=== PATIENT | male | born 1955 | race Hispanic/Latino ===

== ENCOUNTER 2017-04-25 10:41 | Inpatient (IN) | payer BC ==
[~2017-04-25] VITALS: Ht 172.7 cm; Wt 84.9 kg
[~2017-04-25 10:41] MED LIST: AMLODIPINE BESYL5 MG PO; ATORVASTATIN PO; LISINOPRIL5 MG PO; METOPROLOL SUCC25 MG PO; OMEPRAZOLE40 MG PO; PRINIVIL20 MG PO; RANITIDINE HCL150 MG PO; SUCRALFATE1 GM PO
[2017-04-25] MEDS ORDERED: CLONIDINE HCL 0.1 MG TAB PO ONE (11:30)
[2017-04-25] MEDS ORDERED: DIATRIZOATE MEGL/DIATRIZOA SOD 30 ML BTL PO ONE (11:39)
[2017-04-25 11:52] LABS: BASOPHILS # (AUTO) 0.1 (0.0-0.1); BASOPHILS % 1.3 % (0.0-1.0); BILIRUBIN,URINE NEGATIVE (NEGATIVE); CLARITY,URINE CLEAR (CLEAR); COLOR,URINE YELLOW (YELLOW); EOSINOPHILS # (AUTO) 0.2 (0.0-0.4); EOSINOPHILS % 2.6 % (0.0-6.0); HEMATOCRIT 46.4 % (38.2-49.6); HEMOGLOBIN 15.8 g/dL (14.0-18.0); KETONES,URINE NEGATIVE (NEGATIVE); LEUKOCYTE ESTERASE ,URINE TRACE (NEGATIVE); LYMPHOCYTES # (AUTO) 1.2 (1.0-3.2); LYMPHOCYTES % 19.8 % (18.0-39.1); MEAN CORPUSCULAR HEMOGLOBIN 29.1 pg (28-32); MEAN CORPUSCULAR HGB CONC 34.1 g/dL (31-35); MEAN CORPUSCULAR VOLUME 85.5 fL (81-99); MONOCYTES # (AUTO) 0.7 (0.2-0.8); MONOCYTES % 10.6 % (4.4-11.3); NEUTROPHILS # (AUTO) 4.1 (2.1-6.9); NEUTROPHILS % 65.4 % (38.7-80.0); NITRITE,URINE NEGATIVE (NEGATIVE); PLATELET COUNT 260 x10e3/uL (140-360); PROTEIN,URINE DIPSTICK NEGATIVE (NEGATIVE); RED BLOOD COUNT 5.43 x10e6/uL (4.3-5.7); RED CELL DISTRIBUTION WIDTH 13.7 % (11.7-14.4); URINE UROBILINOGEN 0.2 mg/dL (0.2 - 1)
[2017-04-25 12:02] LABS: INR 1.11; PROTHROMBIN TIME 13.5 seconds (11.9-14.5)
[2017-04-25 12:03] LABS: PARTIAL THROMBOPLASTIN TIME 35.4 seconds (23.8-35.5)
[2017-04-25 12:05] LABS: ALANINE AMINOTRANSFERASE 12 IU/L (0-55); ALBUMIN 3.6 g/dL (3.5-5.0); ALBUMIN/GLOBULIN RATIO 0.9 (0.8-2.0); ALKALINE PHOSPHATASE 68 IU/L (40-150); AMYLASE 67 U/L (25-125); ANION GAP 11.7 mmol/L (8-16); BLOOD UREA NITROGEN 14 mg/dL (7-26); BUN/CREATININE RATIO 16 (6-25); CALCIUM 9.3 mg/dL (8.4-10.2); CARBON DIOXIDE 25 mmol/L (22-29); CHLORIDE 99 mmol/L (98-107); CREATININE, SERUM 0.89 mg/dL (0.72-1.25); EST GLOMERULAR FILTRATION RATE > 60 ML/MIN (60-); GLUCOSE 109 mg/dL (74-118); LIPASE 35 U/L (8-78); MAGNESIUM 1.8 MG/DL (1.3-2.1); POTASSIUM 3.7 mmol/L (3.5-5.1); SODIUM 132 mmol/L (136-145)
[2017-04-25 12:07] LABS: BACTERIA,URINE RARE /HPF; EPITHELIAL CELLS,URINE RARE /LPF; RBC,URINE 0-5 /HPF (0-5); WBC,URINE (MAN) 0-5 /HPF (0-5)
--- NOTE | 2017-04-25 13:31 | Diagnostic Imaging Report ---
PROCEDURE: CT ABDOMEN AND PELVIS WITH CONTRAST TECHNIQUE: The abdomen and pelvis were scanned utilizing a multidetector helical scanner from the diaphragm to the lesser trochanter after the IV administration of 100 cc of Isovue 370 and the oral administration of Gastroview and water. Coronal and sagittal multiplanar reformations were obtained. COMPARISON: None. INDICATIONS: LOWER ABDOMINAL PAIN FINDINGS: LOWER THORAX: Normal. HEPATOBILIARY: No focal hepatic lesions. No biliary ductal dilatation. SPLEEN: No splenomegaly. PANCREAS: No focal masses or ductal dilatation. ADRENALS: No adrenal nodules. KIDNEYS/URETERS: No hydronephrosis, stones, or solid mass lesions. PELVIC ORGANS/BLADDER: Unremarkable. PERITONEUM / RETROPERITONEUM: Dense bulky lymphadenopathy is present in the retroperitoneum of the mid abdomen. The largest lymph node is present lateral to the head of the pancreas and posterior to the duodenum, measuring 5.9 x 5.7 cm on series 2 image 25. The lymphadenopathy is present in the distributions of the celiac and superior mesenteric arteries, along the infrarenal abdominal aorta, and bilateral common iliac arteries. No free air or fluid. LYMPH NODES: No lymphadenopathy. VESSELS: Atherosclerotic calcifications. GI TRACT: Normal appendix. No distention or wall thickening. Moderate amount of retained feces limits intraluminal evaluation of the colon. BONES AND SOFT TISSUES: Degenerative changes of the lumbar spine. IMPRESSION: Midabdominal bulky retroperitoneal lymphadenopathy is concerning for lymphoma. Dictated by: Jesus Fuller M.D. on 04/25/2017 at 13:32 Electronically approved by: Jesus Fuller M.D. on 04/25/2017 at 13:32
[2017-04-25] MEDS ORDERED: LABETALOL HCL 5 MG/ML 20ML VIAL IV PRN (14:30)
[2017-04-25] MEDS ORDERED: SODIUM CHLORIDE FLUSH 10 ML SYR INJ PRN (14:30)
--- OUTSIDE RECORDS SUMMARY | 2017-04-25 14:37 | XMS REPORT ---
Author Author [facility] Address Unknown Phone Unavailable Care Team Providers Care Senior Dentist Name Role Phone DADA WATERS Unavailable Unavailable Problems This patient has no known problems. Allergies, Adverse Reactions, Alerts This patient has no known allergies or adverse reactions. Medications This patient has no known medications. Results Test Description Test Time Test Comments Text Results Atomic Results Result Comments CT ABDOMEN/PELVIS W [place] [address] Patient Name: TESFAYE CARVAJAL MR #: [id number] : 1955 Age/Sex: 61/M Req #: [id number] Adm Physician: Ordered by: NIECY GONZALEZ GRAIN BLENDER Report #: [id number] Location: ER Room/Bed: Procedure: [id number] CT/CT ABDOMEN/PELVIS W Exam Date: 04/25/17 Exam Time: 1225 REPORT STATUS: Signed PROCEDURE: CT ABDOMEN AND PELVIS WITH CONTRAST TECHNIQUE: The abdomen and pelvis were scanned utilizing a multidetector helical scanner from the diaphragm to the lesser trochanter after the IV administration of 100 cc of Isovue 370 and the oral administration of Gastroview and water. Coronal and sagittal multiplanar reformations were obtained. COMPARISON: None. INDICATIONS : LOWER ABDOMINAL PAIN FINDINGS: LOWER THORAX: Normal. HEPATOBILIARY: No focal hepatic lesions. No biliary ductal dilatation. SPLEEN : No splenomegaly. PANCREAS: No focal masses or ductal dilatation. ADRENALS: No adrenal nodules. KIDNEYS/URETERS: No hydronephrosis, stones, or solid mass lesions. PELVIC ORGANS/BLADDER: Unremarkable. PERITONEUM / RETROPERITONEUM: Dense bulky lymphadenopathy is present in the retroperitoneum of the mid abdomen. The largest lymph node is present lateral to the head of the pancreas and posterior to the duodenum, measuring 5.9 x 5.7 cm on series 2 image 25. The lymphadenopathy is present in the distributions of the celiac and superior mesenteric arteries, along the infrarenal abdominal aorta, and bilateral common iliac arteries. No free air or fluid. LYMPH NODES: No lymphadenopathy. VESSELS: Atherosclerotic calcifications. GI TRACT: Normal appendix. No distention or wall thickening. Moderate amount of retained feces limits intraluminal evaluation of the colon. BONES AND SOFT TISSUES: Degenerative changes of the lumbar spine. IMPRESSION: Midabdominal bulky retroperitoneal lymphadenopathy is concerning for lymphoma. Dictated by: Shannan Quinones M.D. on 2017 at 13:32 Electronically approved by: Shannan Quinones M.D. on 2017 at 13:32 Dictated By: SHANNAN QUINONES MD [id number] Transcribed By: ARDHA on 04/25/17 1332 COPY TO: NIECY GONZALEZ NP
[2017-04-25] MEDS ORDERED: SODIUM CHLORIDE 0.9% 50ML 50 ML ONE (15:17)
[2017-04-25] MEDS ORDERED: IOPAMIDOL 370 MG/ML 200 ML INFUS..BTL INJ ONE (15:18)
[2017-04-25] MEDS ORDERED: DOCUSATE SODIUM LIQD 100 MG/10 ML UDC NG SCH (17:00)
[2017-04-25] MEDS ORDERED: ACETAMINOPHEN 325 MG TAB PO PRN (17:45)
[2017-04-25] MEDS ORDERED: HYDRALAZINE HCL 20 MG/ML VIAL IV ONE (17:45)
[2017-04-25] MEDS: MORPHINE SULFATE 2 MG/ML SYR IV PRN (17:58)
[2017-04-25 18:36] VITALS: BP 213/118
--- NOTE | 2017-04-25 18:58 | History and Physical ---
HISTORY OF PRESENT ILLNESS: He is a 61-year-old male with past medical history mainly positive for hypertension. Came here with severe abdominal pain and rectal bleeding. Blood pressure was extremely high. Patient is admitted to the hospital. REVIEW OF SYSTEMS: CARDIOVASCULAR: No chest pain or palpitation. RESPIRATORY: No shortness of breath. No cough. GASTROINTESTINAL: He has nausea. No vomiting. He does have abdominal pain. He was passing bright red blood a few days ago. No melena. GENITOURINARY: No frequency, no dysuria. ALLERGIES: HE IS NOT ALLERGIC TO ANY MEDICATIONS. SOCIAL HISTORY: He smokes. He does not drink alcohol. PAST MEDICAL HISTORY: Mainly positive for hypertension. PHYSICAL EXAMINATION: HEART: Shows regular rhythm. No murmur and no extra sounds. LUNGS: Clear bilaterally. ABDOMEN: Soft. Minimal tenderness on the periumbilical area. No distention, no visceromegaly. EXTREMITIES: Show no evidence of cyanosis, edema or trauma. NECK: No lymphadenopathy and no goiter. AXILLARY EXAMINATION: Showed no evidence of any lymphadenopathy. FINAL IMPRESSION: 1. Hypertensive emergency. 2. Abdominal tumor, rule out lymphoma. 3. Rectal bleeding. 4. Nausea. 5. Constipation. PLAN OF TREATMENT: We are going to get an oncology consult with Dr. Cabezas because of the abdominal mass. We are going to consult Dr. Ward Carter, gastroenterology, for rectal bleeding. We are going to put him back on lisinopril and Norvasc. We are going to use labetalol 20 mg IV push as needed for blood pressure more than 150/80. Going to give Tylenol 650 mg q.4 h. as needed for pain or fever. Morphine 4 mg IV q.4 h. as needed. Zofran 4 mg IV q.4 h. as needed. Continue Colace 100 mg twice a day. Lactulose 20 g q.4 h. as needed for constipation. Job#: [id number]
[2017-04-25 19:05] VITALS: BP 213/118
[2017-04-25] MEDS ORDERED: LACTULOSE SYRUP 20 GM/30 ML UDC PO PRN (19:45)
[2017-04-25 20:10] VITALS: BP 155/78
[2017-04-25 23:44] VITALS: BP 155/97
[2017-04-26] VITALS (7 sets, daily range): BP systolic 133–181; BP diastolic 70–98
[2017-04-26] MEDS: MORPHINE SULFATE 2 MG/ML SYR IV PRN ×4 (00:53→21:41)
[2017-04-26] MEDS: NICOTINE 14 MG/EA PATCH TOP SCH ×2 (02:54→09:52)
[2017-04-26 07:29] LABS: BASOPHILS # (AUTO) 0.1 (0.0-0.1); EOSINOPHILS # (AUTO) 0.3 (0.0-0.4); EOSINOPHILS % 3.4 % (0.0-6.0); HEMATOCRIT 44.9 % (38.2-49.6); HEMOGLOBIN 14.9 g/dL (14.0-18.0); LYMPHOCYTES # (AUTO) 1.7 (1.0-3.2); MEAN CORPUSCULAR HEMOGLOBIN 28.4 pg (28-32); MEAN CORPUSCULAR HGB CONC 33.2 g/dL (31-35); MEAN CORPUSCULAR VOLUME 85.5 fL (81-99); MONOCYTES % 10.8 % (4.4-11.3); NEUTROPHILS # (AUTO) 5.8 (2.1-6.9); NEUTROPHILS % 65.5 % (38.7-80.0); PLATELET COUNT 225 x10e3/uL (140-360); RED BLOOD COUNT 5.25 x10e6/uL (4.3-5.7); RED CELL DISTRIBUTION WIDTH 13.6 % (11.7-14.4)
[2017-04-26] MEDS: ONDANSETRON HCL INJ 2 MG/ML VIAL IV PRN ×2 (07:50→17:53)
[2017-04-26 07:56] LABS: ANION GAP 12.8 mmol/L (8-16); BLOOD UREA NITROGEN 12 mg/dL (7-26); BUN/CREATININE RATIO 13 (6-25); CARBON DIOXIDE 27 mmol/L (22-29); CHLORIDE 99 mmol/L (98-107); EST GLOMERULAR FILTRATION RATE > 60 ML/MIN (60-); GLUCOSE 94 mg/dL (74-118); POTASSIUM 3.8 mmol/L (3.5-5.1); SODIUM 135 mmol/L (136-145)
[2017-04-26] MEDS ORDERED: LISINOPRIL 20 MG TAB PO SCH (09:00)
[2017-04-26] MEDS: DOCUSATE SODIUM LIQD 100 MG/10 ML UDC NG SCH ×2 (09:51→16:34)
[2017-04-26] MEDS: METOPROLOL SUCCINATE 25 MG TAB XL PO SCH (09:52)
--- NOTE | 2017-04-26 12:06 | Diagnostic Imaging Report ---
PROCEDURE: CT scan of the chest WITH intravenous contrast, using standard protocol. TECHNIQUE: The chest was scanned utilizing a multidetector helical scanner from the lung apex through the level of the adrenal glands after the IV administration of 100 cc of Isovue 370. Coronal and sagittal multiplanar reformations were obtained. COMPARISON: CT abdomen and pelvis 04/25/2017. INDICATIONS: Tumor FINDINGS: Lines/tubes: None. Lungs and Airways: Linear airspace opacity in the dependent lower lobes compatible with subsegmental atelectasis. No consolidation. No suspicious pulmonary nodules or mass lesion. No gross fibrotic change. Pleura: No pleural effusion or pneumothorax. Heart and mediastinum: The thyroid gland is unremarkable. No axillary or hilar lymphadenopathy. Single enlarged paraesophageal posterior mediastinal lymph node measures 1.5 cm short axis. Otherwise no mediastinal lymphadenopathy. Postsurgical changes of coronary artery bypass graft with extensive atherosclerotic calcification of the squaxin coronary arteries. No ectasia or aneurysmal dilatation of the thoracic aorta. Pulmonary outflow tract is of normal caliber. Soft tissues: No focal soft tissue abnormalities. Abdomen: Visualized portions of the liver, spleen, pancreas, adrenals, and kidneys are unremarkable. Extensive upper abdominal and retroperitoneal lymphadenopathy seen to better advantage on comparison CT abdomen and pelvis 04/25/2017 Bones: Cervical spine fusion hardware partially visualized. Multiple median sternotomy wires. No osseous destructive lesions. Multilevel degenerative disc changes of the thoracic spine. IMPRESSION: Single mildly enlarged paraesophageal mediastinal lymph node, measuring 1.5 cm short axis. Otherwise no intrathoracic lymphadenopathy. No suspicious pulmonary parenchymal lesion. Atherosclerotic vascular disease status post coronary artery bypass graft. Bulky upper abdominal and retroperitoneal lymphadenopathy seen to better advantage on comparison abdominopelvic CT 04/25/2017. Dictated by: To Soliz M.D. on 04/26/2017 at 12:06 Electronically approved by: To Soliz M.D. on 04/26/2017 at 12:06
[2017-04-26] MEDS ORDERED: IOPAMIDOL 370 MG/ML 200 ML INFUS..BTL INJ ONE (15:09)
[2017-04-26] MEDS ORDERED: SODIUM CHLORIDE 0.9% 50ML 50 ML ONE (15:09)
[2017-04-26] MEDS ORDERED: MINERAL OIL 132 ML BTL PR PRN (17:30)
--- NOTE | 2017-04-26 17:56 | Progress Note ---
DATE: April 26, 2017 INTERNAL MEDICINE PROGRESS NOTE SUBJECTIVE: A 61-year-old male who came here with severe abdominal pain and constipation and he was found to have a big mass in the abdomen with a CT of the abdomen. We did a CT of the chest which showed no significant abnormality. Patient also was found to have very high blood pressure. We consulted Dr. Cabezas for hematology. He is going to do a needle biopsy of that mass to find the origin of the mass, and further treatment will depend on that. He also had an episode of rectal bleeding before. The patient has been seen by Dr. Ward Carter, gastroenterology. Hemoglobin and hematocrit are stable. No evidence of any new bleeding. The patient had a colonoscopy done on July 08, 2016 which showed diverticulosis and polyps, which were removed and internal hemorrhoids. PHYSICAL EXAM: VITAL SIGNS: Blood pressure 171/70. Temperature of 96.3, heart rate 80 per minute. Respiratory rate 20 per minute. Oxygen saturation 98%. HEART: Regular rhythm. No murmur. No extra sounds. LUNGS: Clear bilaterally. ABDOMEN: Soft. Nontender, nondistended, no visceromegaly. He had a protuberant abdomen when he is trying to sit up, looks like it is more likely weakness of the abdominal wall in that area. EXTREMITIES: Show no evidence of cyanosis, edema or trauma. LABORATORY DATA: BMP: Sodium 135, potassium 3.8, chloride 99, CO2 27, BUN 12, creatinine 0.90. Glucose 94. On the CBC white blood count 8.85, hemoglobin 14.9, hematocrit 44.9, platelet count 225,000. PT 13.5. PTT 35.4. INR 1.11. AST 16, ALT 12. Total bilirubin 0.9, alkaline phosphatase 68. FINAL IMPRESSION: 1. Intraabdominal mass, rule out lymphoma. 2. History of rectal bleeding which is resolved. 3. Uncontrolled hypertension. 4. History of alcohol abuse. 5. Nausea. 6. Narcotic-induced constipation. PLAN OF TREATMENT: Going to increase the morphine to 4 mg IV every 3 h. as needed. Zofran 4 mg IV q.4 h. as needed. Colace 100 mg twice a day. Amitiza 24 mcg p.o. twice a day for narcotic-induced constipation. Fleet's enema once a day as needed for constipation and fecal impaction. Lactose 20 gram twice a day as needed. We are going to increase the lisinopril to 40 mg daily. He is taking NicoDerm patch 40 mg daily. He is on metoprolol [address] also Dr[address] Gracia Cabezas for hematology/oncology for workup of abdominal mass and Dr. Ward Carter because of rectal bleeding. Patient is complaining of abdominal pain so we are going to increase the morphine. Job#: [id number]
[2017-04-26] MEDS ORDERED: LIDOCAINE HCL 2% LOCAL 20 ML VIAL INJ ONE (18:45)
[2017-04-27] VITALS (7 sets, daily range): BP systolic 139–171; BP diastolic 66–91
[2017-04-27] MEDS: MORPHINE SULFATE 2 MG/ML SYR IV PRN ×4 (03:40→23:54)
[2017-04-27] MEDS: PANTOPRAZOLE SOD 40 MG TABEC PO SCH (08:30)
--- NOTE | 2017-04-27 09:03 | Operative Report ---
DATE OF PROCEDURE: PROCEDURE: Bone marrow aspirate and biopsy. INDICATIONS: Possible lymphoma. COMPLICATIONS: None. BLOOD LOSS: None. ANESTHESIA: Local 1% lidocaine without epinephrine. PROCEDURE NOTE: Under sterile technique after having prepped the right posterior iliac crest with Povidine, local anesthesia was given from the skin to the right posterior iliac crest. Subsequently, using a Jamshidi needle, right posterior iliac crest aspirate and biopsy was done. The specimen was sent for H and E stain, flow cytometry, chromosome analysis, as well as biopsy for interpretation. Job#: [id number] SONAM
[2017-04-27] MEDS: LISINOPRIL 20 MG TAB PO SCH (09:12)
[2017-04-27] MEDS: LUBIPROSTONE 24 MCG CAP PO SCH ×2 (09:12→17:49)
[2017-04-27] MEDS: DOCUSATE SODIUM LIQD 100 MG/10 ML UDC NG SCH ×2 (09:12→17:00)
[2017-04-27] MEDS: METOPROLOL SUCCINATE 25 MG TAB XL PO SCH (09:13)
[2017-04-27] MEDS: NICOTINE 14 MG/EA PATCH TOP SCH (09:13)
[2017-04-27] MEDS: ONDANSETRON HCL INJ 2 MG/ML VIAL IV PRN (09:57)
--- NOTE | 2017-04-27 15:04 | Consultation ---
DATE OF CONSULTATION: Mr. Koehler is a 61-year-old male who presented with abdominal pain. Subsequently, also had some rectal bleed. Subsequently, referred to me for evaluation and treatment. HISTORY OF PAST ILLNESSES: History of CABG times 3, history of lumbar laminectomy, history of cervical laminectomy. 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 MEDICATIONS: At this time: 1. Labetalol. 2. Ondansetron. 3. Sodium chloride. 4. Nicotine patch. 5. Lisinopril. 6. Lubiprostone. 7. Protonix. REVIEW OF SYSTEMS HEENT: Normal. CARDIAC: History of hypertension and history of CABG. RESPIRATORY: Normal. GI: Normal now. Intra-abdominal mass. : Normal. MUSCULOSKELETAL: Normal. SKIN AND BREASTS: Normal. NEUROENDOCRINE: Normal. PHYSICAL EXAMINATION GENERAL: A moderately built male. Left axillary adenopathy which is 1 cm. HEART: Within normal limits. CHEST: CABG scar is seen. Scar surgery of over the neck of anterior laminectomy. Lungs are clear. ABDOMEN: Obese. Even though the mass is described, I cannot feel the mass. RECTAL: Deferred. CENTRAL NERVOUS SYSTEM: Normal. EXTREMITIES: Essentially normal. LABS: Shows a hemoglobin of 15.8, hematocrit 46.4, white count 6200, and platelets are reported at 260,000. Chemistry shows a sodium of 132, potassium 3.7, chloride 99, CO2 25, BUN 14, creatinine 0.8, glucose 109. Calcium 9.3. Magnesium 1.8. Bilirubin 0.9, SGOT 16, SGPT 12, alkaline phosphatase 68. Total protein 7.4. Albumin 3.6. Globulin slightly high at 3.8. LDH high at 237. IMAGING: Shows a CT of the abdomen which shows midabdominal bulky retroperitoneal lymphadenopathy. This is 5.9 x 5.7 cm. This is present in the distribution of celiac and superior mesenteric arteries. CT of the chest is also reported essentially normal. IMPRESSION 1. Lymphoma until proven otherwise. 2. History of hypertensive crises which brought him to the hospital. 3. Coronary artery bypass graft times 3. 4. Cervical laminectomy. 5. Lumbar laminectomy. PLAN: Have a biopsy by the interventional radiologist, as well as bone marrow aspirate and biopsy. Once confirmed, the patient will have a PET scan as an outpatient. The patient claims that he has had a colonoscopy 1 year back, and was found to have internal hemorrhoids. Job#: [id number] RI cc:MD CECELIA NAPOLES MD
--- NOTE | 2017-04-27 19:16 | Progress Note ---
DATE: April 27, 2017 INTERNAL MEDICINE PROGRESS NOTE SUBJECTIVE: A 61-year-old male with past medical history positive for hypertension. Came here with abdominal pain. He was found to have intraabdominal mass most likely lymphoma. Patient was referred to an inpatient Radiology to a biopsy and invasive Radiology here at [facility] declined to do it because of the complexity of reaching the mass. Dr. Cabezas, hematology/oncology, wants to discharge the patient do the biopsy of the abdominal mass as an outpatient. He already had a bone marrow biopsy. PHYSICAL EXAM: VITAL SIGNS: Blood pressure 141/91. Temperature 98.7, heart rate 84 per minute. Respiratory rate is 18 per minute. Oxygen saturation 97% HEART: Regular rhythm. No murmurs, no extra sounds. LUNGS: Clear bilaterally. ABDOMEN: Soft. EXTREMITIES: Show no evidence cyanosis, edema or trauma. On the BMP sodium 135, potassium 3.8, chloride 99, CO2 27, BUN 12, creatinine 0.90, glucose 94 and on CBC white blood count showed 8.85, hemoglobin 14.9, hematocrit 44.9, platelet count 225,000. PT 13.5, INR 1.11, PTT 35.4. AST 16, ALT 12, total bilirubin 0.9, alkaline phosphatase 68. FINAL IMPRESSION: 1. Intraabdominal mass, most likely lymphoma. 2. History of rectal bleeding which is resolved. 3. Uncontrolled hypertension which is under better control now. 4. History of alcohol abuse. 5. Narcotic-induced constipation. PLAN OF TREATMENT: He is on labetalol 20 mg IV q.6 h. as needed for hypertension. Zofran 4 mg IV q.4 h. as needed. Tylenol 325 mg q.4 h. as needed for pain or fever. NicoDerm patch 14 mg daily. Morphine 4 mg IV q.3 h. as needed for severe pain. Metoprolol 25 mg daily. Lisinopril 40 mg daily. Protonix 40 mg daily. Colace 100 mg twice a day. Amitiza 24 mcg p.o. twice a day. Going to discontinue Colace. Continue lactulose 20 grams twice a day. Tentative discharge tomorrow with instructions to follow up with Dr. Cabezas, hematology/oncology, who is going to arrange for the outpatient intra-abdominal mass biopsy, and he is going to follow up the bone marrow biopsy report. Job#: [id number] GH
[2017-04-28] VITALS: BP 165/97
[2017-04-28] MEDS: ONDANSETRON HCL INJ 2 MG/ML VIAL IV PRN (02:41)
[2017-04-28] MEDS: MORPHINE SULFATE 2 MG/ML SYR IV PRN ×4 (03:45→15:50)
[2017-04-28 04:00] VITALS: BP 157/83
[2017-04-28 07:40] VITALS: BP 157/83
[2017-04-28 08:16] VITALS: BP 155/86
[2017-04-28] MEDS: DOCUSATE SODIUM LIQD 100 MG/10 ML UDC NG SCH (08:46)
[2017-04-28] MEDS: LUBIPROSTONE 24 MCG CAP PO SCH (08:46)
[2017-04-28] MEDS: LISINOPRIL 20 MG TAB PO SCH (08:57)
[2017-04-28] MEDS: NICOTINE 14 MG/EA PATCH TOP SCH (08:57)
[2017-04-28] MEDS: METOPROLOL SUCCINATE 25 MG TAB XL PO SCH (08:57)
[2017-04-28] MEDS: PANTOPRAZOLE SOD 40 MG TABEC PO SCH (08:57)
[2017-04-28 12:34] VITALS: BP 141/76
[2017-04-28] MEDS ORDERED: LISINOPRIL10 MG PO (15:32)
[2017-04-28] MEDS ORDERED: METOPROLOL TART25 MG PO (15:33)
[2017-04-28] MEDS ORDERED: TYLENOL WITH C1 EACH PO (15:34)
--- NOTE | 2017-04-28 16:13 | Discharge Summary ---
HISTORY OF PRESENT ILLNESS/HOSPITAL COURSE: A 61-year-old male with past medical history positive for hypertension. Patient came to the hospital complaining of severe abdominal pain. He was found to have an intraabdominal mass, most likely lymphoma. Dr. Hernández, oncology, was consulted on the case. He recommended a biopsy of the intraabdominal mass. The radiologist here at [facility] refused to do it because they say it is a very difficult access to do the biopsy. Dr. Hernández, hematology, decided that the patient can go home and do a biopsy at the [facility] with one of the radiologists that he is more familiar with. Dr. Ward Carter saw him from the gastroenterology point of view because the patient had an episode of rectal bleeding before, which is completely resolved, and he already had a colonoscopy done last year. PHYSICAL EXAM: Blood pressure 141/76, temperature 97.8, heart rate 85 per minute, respiratory rate 20 per minute, oxygen saturation 96%. The abdomen is not distended. He has tenderness in the midabdomen. On the BMP: Sodium 135, potassium 3.8, chloride 99, CO2 27, BUN 12, creatinine 0.92, glucose 94. CBC showed white blood count 8.85, hemoglobin 14.9, hematocrit 44.9, platelet count 225,000. PT 13.5, INR 1.11, PTT 35.4. AST 16, ALT 12, total bilirubin 0.9, alkaline phosphatase 68. FINAL IMPRESSIONS: 1. Uncontrolled hypertension, which is better right now. 2. Intraabdominal tumor, rule out lymphoma. 3. Abdominal pain most likely related to the intraabdominal mass. PLAN OF TREATMENT: He is going to be discharged on lisinopril 40 mg daily. Metoprolol 25 mg twice a day. Protonix 40 mg daily. Patient will be seeing Dr. Dania Hernández, hemato-oncologist, as an outpatient in a week to schedule the biopsy for the intraabdominal mass. He already had a bone marrow biopsy. The report is pending. Apparently it will take 3 or 4 days before the report is ready. Dr. Hernández, hematology, will follow up the report. Patient is told the importance of the biopsy because it might be a lymphoma or any other type of cancer. So, he has to follow up with Dr. Hernández, hemato-oncology, for the workup and eventual treatment. He is going to be discharged also on Tylenol No. 4 one tablet every 4 hours as needed for pain. TAYLER FLOREZ MD Job#: [id number] EV
[2017-04-28 16:31] VITALS: BP 155/96
== END 2017-04-28 16:27 | disposition home or self-care (01) | DRG 841 ==
LOC: ER 10:41 → ERHOLD 14:34 → MED/SURG 17:25
PROVIDERS: ADMIT Internal Medicine; ATTEND Internal Medicine
PROC: 07DR3ZX Extraction of Iliac Bone Marrow, Percutaneous Approach, Diagnostic (ICD-10-PCS; principal; 2017-04-27)
DX: C85.93 Non-Hodgkin lymphoma, unspecified, intra-abdominal lymph nodes (principal); K92.2 Gastrointestinal hemorrhage, unspecified; I25.10 Atherosclerotic heart disease of native coronary artery without angina pectoris; Z95.1 Presence of aortocoronary bypass graft; K59.09 Other constipation; T40.605A Adverse effect of unspecified narcotics, initial encounter; R59.0 Localized enlarged lymph nodes; E66.9 Obesity, unspecified; Z68.28 Body mass index [BMI] 28.0-28.9, adult; F17.210 Nicotine dependence, cigarettes, uncomplicated; I16.0 Hypertensive urgency
CPT/HCPCS: 36415; 71260; 74177; 80048; 80053; 81001; 82150; 83615; 83690; 83735; 85025; 85610; 85730; 99284; J0360; J2001; J2270; J2405; Q9967

== ENCOUNTER 2024-01-23 13:55 | Emergency (ER) | payer MEDICARE ==
[~2024-01-23] VITALS: Ht 172.7 cm; Wt 99.8 kg
[~2024-01-23 13:55] MED LIST changes: +CYCLOBENZAPRINE10 MG PO; +LISINOPRIL10 MG PO; +METOPROLOL TART25 MG PO; +TYLENOL WITH C1 EACH PO
[2024-01-23 14:32] VITALS: PULSE 88; RESP 20; TEMP 98.1; O2SAT 97
[2024-01-23] MEDS ORDERED: NAPROXEN250 MG PO (16:07)
== END 2024-01-23 17:11 | disposition home or self-care (01) ==
LOC: ER 15:01
DX: M54.50 Low back pain, unspecified (principal); M25.551 Pain in right hip; G89.29 Other chronic pain; I10 Essential (primary) hypertension; I25.10 Atherosclerotic heart disease of native coronary artery without angina pectoris; M10.9 Gout, unspecified; Z85.72 Personal history of non-Hodgkin lymphomas; Z95.1 Presence of aortocoronary bypass graft
CPT/HCPCS: 72192; 99283